=== PATIENT | male | born 1985 | race Caucasian/White ===

== ENCOUNTER → 2024-02-17 15:39 | Outpatient (BNVA) | payer BC, SELFPAY | PROVIDERS: PCP Nurse Practitioner Family; Visit Provider Orthopaedic Surgery | DX: M54.9 Dorsalgia, unspecified (principal) | CPT/HCPCS: 72072 ==

== ENCOUNTER 2024-07-28 12:06 | Outpatient (CLI) | payer BC, SELFPAY ==
--- NOTE | 2024-07-28 12:15 | MR_ITS ---
WS: [id number] MRI THORACIC SPINE WITHOUT CONTRAST TECHNIQUE: Sagittal T1, T2 and STIR imaging. Axial T2 imaging. Noncontrast imaging obtained. CLINICAL INFORMATION: M54.6 - Pain in thoracic spine COMPARISON: MRI 05/11/2023 FINDINGS: Mild thoracic curve. Moderate thoracic kyphosis. Small central protrusions in the mid thoracic spine. Disc protrusions more prominent at T6-T8. T6-7: Shallow central protrusion with slight contact of the thoracic cord. Spinal canal and foramen are patent. T7-8: Central and LEFT paracentral protrusion with indentation on the LEFT ventral thoracic cord. Mild to moderate central canal stenosis. Foramina are patent. T8-9: Central disc protrusion with indentation on the LEFT ventral thoracic cord. Mild central canal stenosis. Mild LEFT greater than RIGHT foraminal narrowing. T9-10: Shallow LEFT paracentral protrusion. Slight contact of the thoracic cord. Moderate facet arthropathy. Foramen are patent. Mild central canal stenosis. Moderate facet arthropathy lower thoracic spine. Normal caliber thoracic aorta. Adrenal glands are normal. Tiny esophageal hiatal hernia. MR/MR thoracic spin wo con* [id number] IMPRESSION: 1. Mild thoracic curve. Mild thoracic kyphosis. No acute compression. 2. Cord signal is normal. 3. Small central protrusions in the mid thoracic spine at T6-T9. This is worse at T7-T8 and T8-T9 with mild to moderate central canal stenosis and indentatio n on the thoracic cord. See detailed description above. 4. Central protrusion at T7-T8 is progressed compared to previous 5. Cord signal is normal.
== END 2024-07-28 12:07 | disposition home or self-care (01) ==
PROVIDERS: PCP Nurse Practitioner Family; Visit Provider Anesthesiology Pain Medicine
DX: M48.04 Spinal stenosis, thoracic region (principal); M43.8X4 Other specified deforming dorsopathies, thoracic region; M40.294 Other kyphosis, thoracic region; M51.24 Other intervertebral disc displacement, thoracic region; R93.7 Abnormal findings on diagnostic imaging of other parts of musculoskeletal system; M47.894 Other spondylosis, thoracic region
CPT/HCPCS: 72146